=== PATIENT | male | born 1960 | race Caucasian/White ===

== ENCOUNTER 2016-03-07 08:12 | Outpatient (CLI) | payer OTHER | END 2016-03-07 08:13 | disposition home or self-care (01) | DX: M17.11 Unilateral primary osteoarthritis, right knee (principal) ==

== ENCOUNTER 2016-08-08 11:32 | Outpatient (CLI) | payer OTHER ==
--- NOTE | 2016-08-08 13:57 | XRAY Report ---
TWO-VIEW CHEST: 08/08/2016 CLINICAL INDICATION: Cough. COMPARISON: 12/24/2006 FINDINGS: Frontal and lateral views of the chest demonstrate a normal cardiac silhouette. The lungs are clear. No effusion or pneumothorax is present. IMPRESSION: NORMAL CHEST. JOB #: [id number] EXT JOB #:[id number]
== END 2016-08-08 11:33 | disposition home or self-care (01) ==
LOC: DI 11:32
PROVIDERS: ATTEND Internal Medicine
DX: R05 Cough (principal)
CPT/HCPCS: 71020

== ENCOUNTER 2016-08-31 07:59 | Outpatient (CLI) | payer OTHER ==
[2016-08-31 08:26] LABS: HCT - HEMATOCRIT 42.1 % (42.0-52.0); HGB - HEMOGLOBIN 14.5 g/dL (14.0-18.0); MEAN CORPUSCULAR HEMOGLOBIN 32.7 pg (27.0-31.0); MEAN CORPUSCULAR HGB CONC 34.5 g/dL (32.0-36.0); MEAN PLATELET VOLUME 7.7 fL (7.4-11.4); RED BLOOD COUNT 4.43 10^6/uL (4.70-6.10); WHITE BLOOD COUNT 6.4 x10^3/uL (4.8-10.8)
[2016-08-31 08:44] LABS: BILIRUBIN,TOTAL 0.6 mg/dL (0.2-1.0); BUN - BLOOD UREA NITROGEN 17 mg/dL (6-20); CALCIUM 8.8 mg/dL (8.5-10.3); CARBON DIOXIDE - CO2 24 mmol/L (21-32); CHLORIDE 105 mmol/L (101-111); CHOL/HDL RATIO 4.4 (<5.0); CHOLESTEROL 166 mg/dL; CREATININE 0.9 mg/dL (0.6-1.2); GFR - MDRD 87 (>89); GLUCOSE 99 mg/dL (70-100); HDL CHOLESTEROL 38 mg/dL; LDL/HDL RATIO 2.7 (<3.6); POTASSIUM 3.9 mmol/L (3.5-5.0); SODIUM 136 mmol/L (135-145); TOTAL PROTEIN 7.6 g/dL (6.7-8.2); TRIGLYCERIDES 118 mg/dL; VLDL CHOLESTEROL 24 mg/dL
== END 2016-08-31 08:00 | disposition home or self-care (01) ==
LOC: LAB 07:59
PROVIDERS: ATTEND Internal Medicine
DX: E78.5 Hyperlipidemia, unspecified (principal); I10 Essential (primary) hypertension; M25.561 Pain in right knee; Z12.5 Encounter for screening for malignant neoplasm of prostate; Z79.899 Other long term (current) drug therapy
CPT/HCPCS: 36415; 80053; 80061; 82306; 84153; 84443

== ENCOUNTER 2016-11-06 09:25 | Outpatient (CLI) | payer OTHER | END 2016-11-06 09:26 | disposition home or self-care (01) | LOC: SC 09:25 | PROVIDERS: ATTEND Internal Medicine Pulmonary Disease | DX: G47.33 Obstructive sleep apnea (adult) (pediatric) (principal); I10 Essential (primary) hypertension | CPT/HCPCS: 99203; 99212 ==

== ENCOUNTER 2016-11-28 08:17 | Outpatient (CLI) | payer OTHER ==
[2016-11-28 09:07] LABS: HCT - HEMATOCRIT 45.8 % (42.0-52.0); HGB - HEMOGLOBIN 15.7 g/dL (14.0-18.0); MEAN CORPUSCULAR HEMOGLOBIN 32.6 pg (27.0-31.0); MEAN CORPUSCULAR HGB CONC 34.2 g/dL (32.0-36.0); MEAN CORPUSCULAR VOLUME 95.3 fL (80.0-94.0); MEAN PLATELET VOLUME 8.1 fL (7.4-11.4); RED BLOOD COUNT 4.81 10^6/uL (4.70-6.10); WHITE BLOOD COUNT 7.9 x10^3/uL (4.8-10.8)
[2016-11-28 09:18] LABS: CALCIUM 9.2 mg/dL (8.5-10.3); CREATININE 0.9 mg/dL (0.6-1.2); POTASSIUM 4.1 mmol/L (3.5-5.0)
--- NOTE | 2016-11-28 10:52 | XRAY Report ---
TWO-VIEW CHEST: 11/28/2016 CLINICAL INDICATION: Cough. COMPARISON: 08/08/2016 FINDINGS: Frontal and lateral views of the chest demonstrate a normal cardiac silhouette. The lungs remain clear. No effusion or pneumothorax is present. IMPRESSION: NORMAL CHEST. JOB #: [id number] EXT JOB #:[id number]
== END 2016-11-28 08:18 | disposition home or self-care (01) ==
LOC: DI 08:17
PROVIDERS: ATTEND Internal Medicine
DX: R05 Cough (principal); I10 Essential (primary) hypertension; Z79.899 Other long term (current) drug therapy
CPT/HCPCS: 36415; 71020; 80048

== ENCOUNTER 2016-12-25 08:57 | Outpatient (CLI) | payer OTHER | END 2016-12-25 08:58 | disposition home or self-care (01) | LOC: SC 08:57 | PROVIDERS: ATTEND Internal Medicine Pulmonary Disease | DX: G47.33 Obstructive sleep apnea (adult) (pediatric) (principal) | CPT/HCPCS: 99212; 99213 ==

== ENCOUNTER 2017-03-20 08:49 | Outpatient (CLI) | payer OTHER ==
[2017-03-20 09:35] LABS: ALBUMIN 3.6 g/dL (3.2-5.5); ALBUMIN/GLOBULIN RATIO 0.9 (1.0-2.2); ALKALINE PHOSPHATASE 54 IU/L (42-121); ALT ALANINE AMINOTRANSFERASE 23 IU/L (10-60); AST ASPARTATE AMINOTRANSFERASE 23 IU/L (10-42); BILIRUBIN,TOTAL 0.7 mg/dL (0.2-1.0); BUN - BLOOD UREA NITROGEN 18 mg/dL (6-20); CALCIUM 8.8 mg/dL (8.5-10.3); CARBON DIOXIDE - CO2 23 mmol/L (21-32); CHLORIDE 104 mmol/L (101-111); CHOL/HDL RATIO 4.4 (<5.0); CHOLESTEROL 167 mg/dL; CREATININE 0.8 mg/dL (0.6-1.2); GFR - MDRD 99 (>89); GLUCOSE 89 mg/dL (70-100); HDL CHOLESTEROL 38 mg/dL; LDL CHOLESTEROL,CALCULATED 100 mg/dL; LDL/HDL RATIO 2.6 (<3.6); SODIUM 137 mmol/L (135-145); TOTAL PROTEIN 7.5 g/dL (6.7-8.2); VLDL CHOLESTEROL 29 mg/dL
== END 2017-03-20 08:50 | disposition home or self-care (01) ==
LOC: LAB 08:49
PROVIDERS: ATTEND Internal Medicine
DX: E78.00 Pure hypercholesterolemia, unspecified (principal); I10 Essential (primary) hypertension; Z79.899 Other long term (current) drug therapy
CPT/HCPCS: 36415; 80053; 80061; 83721

== ENCOUNTER 2017-06-12 08:22 | Outpatient (CLI) | payer OTHER ==
[2017-06-12 09:02] LABS: CALCIUM 8.9 mg/dL (8.5-10.3); CREATININE 0.9 mg/dL (0.6-1.2); MAGNESIUM 1.9 mg/dL (1.7-2.8)
== END 2017-06-12 08:23 | disposition home or self-care (01) ==
LOC: LAB 08:22
PROVIDERS: ATTEND Internal Medicine
DX: E78.5 Hyperlipidemia, unspecified (principal); I10 Essential (primary) hypertension
CPT/HCPCS: 36415; 80048; 83735

== ENCOUNTER 2017-06-12 08:57 | Outpatient (CLI) | payer OTHER ==
--- NOTE | 2017-06-12 12:34 | XRAY Report ---
TWO VIEW CHEST: 06/12/2017 CLINICAL INDICATION: Cough, nicotine dependence. FINDINGS: Frontal and lateral views of the chest are compared to previous films of 11/28/2016. The cardiac silhouette is within normal limits. The lungs remain clear. No effusion or pneumothorax is present. IMPRESSION: NORMAL CHEST, UNCHANGED. TD: 06/12/2017 12:33
== END 2017-06-12 08:58 | disposition home or self-care (01) ==
LOC: DI 08:57
PROVIDERS: ATTEND Internal Medicine
DX: R05 Cough (principal); F17.210 Nicotine dependence, cigarettes, uncomplicated; E78.5 Hyperlipidemia, unspecified; I10 Essential (primary) hypertension
CPT/HCPCS: 36415; 71046; 80048; 83735

== ENCOUNTER 2017-10-23 13:00 | Outpatient (CLI) | payer OTHER | END 2017-10-23 13:01 | disposition home or self-care (01) | LOC: RT 13:00 | PROVIDERS: ATTEND Internal Medicine | DX: R05 Cough (principal) | CPT/HCPCS: 94010 ==

== ENCOUNTER 2018-03-18 09:04 | Outpatient (CLI) | payer BC ==
[2018-03-18 09:25] LABS: BASOPHILS % (AUTO) 0.6 %; EOSINOPHILS # (AUTO) 0.2 10^3/uL (0.0-0.7); EOSINOPHILS % (AUTO) 2.1 %; HGB - HEMOGLOBIN 14.3 g/dL (14.0-18.0); LYMPHOCYTES # (AUTO) 2.2 10^3/uL (1.5-3.5); LYMPHOCYTES % (AUTO) 27.6 %; MEAN CORPUSCULAR HEMOGLOBIN 32.7 pg (27.0-31.0); MEAN CORPUSCULAR HGB CONC 34.1 g/dL (32.0-36.0); MEAN PLATELET VOLUME 7.3 fL (7.4-11.4); MONOCYTES # (AUTO) 0.7 10^3/uL (0.0-1.0); MONOCYTES % (AUTO) 9.1 %; NEUTROPHILS # (AUTO) 4.8 10^3/uL (1.5-6.6); NEUTROPHILS % (AUTO) 60.6 %; PLT - PLATELET COUNT 257 10^3/uL (130-450); RED BLOOD COUNT 4.36 10^6/uL (4.70-6.10); RED CELL DISTRIBUTION WIDTH 13.1 % (12.0-15.0)
[2018-03-18 09:43] LABS: ALBUMIN 3.6 g/dL (3.2-5.5); ALBUMIN/GLOBULIN RATIO 0.9 (1.0-2.2); ALKALINE PHOSPHATASE 49 IU/L (42-121); ALT ALANINE AMINOTRANSFERASE 23 IU/L (10-60); AST ASPARTATE AMINOTRANSFERASE 22 IU/L (10-42); BILIRUBIN,TOTAL 0.7 mg/dL (0.2-1.0); BUN - BLOOD UREA NITROGEN 24 mg/dL (6-20); CARBON DIOXIDE - CO2 27 mmol/L (21-32); CHLORIDE 101 mmol/L (101-111); CHOL/HDL RATIO 3.4 (<5.0); CHOLESTEROL 136 mg/dL; GFR - MDRD 76 (>89); GLUCOSE 100 mg/dL (70-100); HDL CHOLESTEROL 40 mg/dL; LDL CHOLESTEROL,CALCULATED 73 mg/dL; LDL/HDL RATIO 1.8 (<3.6); SODIUM 135 mmol/L (135-145); TOTAL PROTEIN 7.4 g/dL (6.7-8.2); VLDL CHOLESTEROL 23 mg/dL
== END 2018-03-18 09:05 | disposition home or self-care (01) ==
LOC: LAB 09:04
PROVIDERS: ATTEND Internal Medicine
DX: I10 Essential (primary) hypertension (principal); E78.5 Hyperlipidemia, unspecified; D64.9 Anemia, unspecified; E78.00 Pure hypercholesterolemia, unspecified
CPT/HCPCS: 36415; 80053; 80061; 83721; 85025; 85651

== ENCOUNTER 2018-06-18 09:39 | Outpatient (CLI) | payer BC ==
[2018-06-18 10:04] LABS: ABSOLUTE RETICS # AUTO 0.027 10^6/uL (0.020-0.110); BASOPHILS % (AUTO) 0.4 %; EOSINOPHILS # (AUTO) 0.1 10^3/uL (0.0-0.7); EOSINOPHILS % (AUTO) 0.9 %; HGB - HEMOGLOBIN 14.8 g/dL (14.0-18.0); LYMPHOCYTES # (AUTO) 2.3 10^3/uL (1.5-3.5); LYMPHOCYTES % (AUTO) 28.8 %; MEAN CORPUSCULAR HEMOGLOBIN 32.2 pg (27.0-31.0); MEAN CORPUSCULAR HGB CONC 33.6 g/dL (32.0-36.0); MEAN CORPUSCULAR VOLUME 95.9 fL (80.0-94.0); MEAN PLATELET VOLUME 7.8 fL (7.4-11.4); MEAN RETIC VALUE 118.1; MONOCYTES # (AUTO) 0.7 10^3/uL (0.0-1.0); NEUTROPHILS # (AUTO) 4.9 10^3/uL (1.5-6.6); NEUTROPHILS % (AUTO) 60.9 %; PLT - PLATELET COUNT 250 10^3/uL (130-450); RED BLOOD COUNT 4.59 10^6/uL (4.70-6.10); RED CELL DISTRIBUTION WIDTH 12.5 % (12.0-15.0); WHITE BLOOD COUNT 8.1 x10^3/uL (4.8-10.8)
[2018-06-18 10:31] LABS: FERRITIN 199.4 ng/mL (23.9-336.2)
[2018-06-18 11:08] LABS: CALCIUM 9.3 mg/dL (8.5-10.3); CREATININE 1.1 mg/dL (0.6-1.2)
[2018-06-18 11:17] LABS: FOLATE > 49.60 ng/mL (5.90 - >24.8)
== END 2018-06-18 09:40 | disposition home or self-care (01) ==
LOC: LAB 09:39
PROVIDERS: ATTEND Internal Medicine
DX: I10 Essential (primary) hypertension (principal); D64.9 Anemia, unspecified; Z79.899 Other long term (current) drug therapy; E78.49 Other hyperlipidemia
CPT/HCPCS: 36415; 80048; 82607; 82728; 82746; 83540; 84466; 85025; 85044

== ENCOUNTER 2018-09-10 09:16 | Outpatient (CLI) | payer BC ==
[2018-09-10 09:39] LABS: CALCIUM 9.2 mg/dL (8.5-10.3)
[2018-09-11 09:04] LABS: CHOLESTEROL 124 mg/dL; HDL CHOLESTEROL 42 mg/dL; LDL CHOLESTEROL,CALCULATED 65 mg/dL; LDL/HDL RATIO 1.5 (<3.6); VLDL CHOLESTEROL 17 mg/dL
== END 2018-09-10 09:17 | disposition home or self-care (01) ==
LOC: LAB 09:16
PROVIDERS: ATTEND Internal Medicine
DX: E78.5 Hyperlipidemia, unspecified (principal); I10 Essential (primary) hypertension; D64.9 Anemia, unspecified; Z79.899 Other long term (current) drug therapy
CPT/HCPCS: 36415; 80048; 80061; 82607; 83721; 84153

== ENCOUNTER 2018-10-23 08:44 | Outpatient (CLI) | payer BC ==
--- NOTE | 2018-10-23 15:22 | XRAY Report ---
Reason: OTHER EMPHYSEMA Procedure Date: 10/23/2018 Accession Number: [id number] / [id number] Procedure: XR - Chest 2 View X-Ray CPT Code: 82965 FULL RESULT: EXAM: CHEST RADIOGRAPHY EXAM DATE: 10/23/2018 09:00 AM. CLINICAL HISTORY: OTHER EMPHYSEMA. COMPARISON: CHEST 2 VIEW 06/12/2017 9:23 AM. TECHNIQUE: 2 views. FINDINGS: Lungs/Pleura: No focal opacities evident. No pleural effusion. No pneumothorax. Normal volumes. Mediastinum: Heart and mediastinal contours are unremarkable. Other: None. IMPRESSION: Normal 2-view chest radiography. Stable exam RADIA
== END 2018-10-23 08:45 | disposition home or self-care (01) ==
LOC: DI 08:44
PROVIDERS: ATTEND Internal Medicine Pulmonary Disease
DX: J43.8 Other emphysema (principal)
CPT/HCPCS: 71046

== ENCOUNTER 2020-03-01 10:17 | Outpatient (CLI) | payer BC, OTHER ==
[2020-03-01 10:40] LABS: BASOPHILS % (AUTO) 0.5 %; EOSINOPHILS # (AUTO) 0.1 10^3/uL (0.0-0.7); EOSINOPHILS % (AUTO) 1.9 %; HGB - HEMOGLOBIN 13.7 g/dL (14.0-18.0); LYMPHOCYTES # (AUTO) 2.4 10^3/uL (1.5-3.5); MEAN CORPUSCULAR HEMOGLOBIN 32.1 pg (27.0-31.0); MEAN CORPUSCULAR HGB CONC 33.7 g/dL (32.0-36.0); MEAN CORPUSCULAR VOLUME 95.1 fL (80.0-94.0); MEAN PLATELET VOLUME 9.6 fL (7.4-11.4); MONOCYTES # (AUTO) 0.7 10^3/uL (0.0-1.0); MONOCYTES % (AUTO) 10.3 %; NEUTROPHILS # (AUTO) 3.2 10^3/uL (1.5-6.6); NEUTROPHILS % (AUTO) 50.1 %; PLT - PLATELET COUNT 235 10^3/uL (130-450); RED BLOOD COUNT 4.27 10^6/uL (4.70-6.10); RED CELL DISTRIBUTION WIDTH 12.5 % (12.0-15.0); WHITE BLOOD COUNT 6.4 x10^3/uL (4.8-10.8)
[2020-03-01 10:56] LABS: ALBUMIN 3.7 g/dL (3.2-5.5); ALBUMIN/GLOBULIN RATIO 0.9 (1.0-2.2); ALKALINE PHOSPHATASE 51 IU/L (42-121); ALT ALANINE AMINOTRANSFERASE 31 IU/L (10-60); AST ASPARTATE AMINOTRANSFERASE 26 IU/L (10-42); BILIRUBIN,TOTAL 0.6 mg/dL (0.2-1.0); BUN - BLOOD UREA NITROGEN 22 mg/dL (6-20); CALCIUM 9.1 mg/dL (8.5-10.3); CARBON DIOXIDE - CO2 24 mmol/L (21-32); CHLORIDE 97 mmol/L (101-111); CHOL/HDL RATIO 3.4 (<5.0); CHOLESTEROL 146 mg/dL; CREATININE 1.1 mg/dL (0.6-1.2); GLUCOSE 109 mg/dL (70-100); HDL CHOLESTEROL 43 mg/dL; LDL CHOLESTEROL,CALCULATED 83 mg/dL; LDL/HDL RATIO 1.9 (<3.6); SODIUM 134 mmol/L (135-145); TOTAL PROTEIN 7.8 g/dL (6.7-8.2); VLDL CHOLESTEROL 20 mg/dL
== END 2020-03-01 10:18 | disposition home or self-care (01) ==
LOC: LAB 10:17
PROVIDERS: ATTEND Internal Medicine
DX: I10 Essential (primary) hypertension (principal); E78.5 Hyperlipidemia, unspecified; D64.9 Anemia, unspecified; R53.83 Other fatigue; Z79.899 Other long term (current) drug therapy
CPT/HCPCS: 36415; 80053; 80061; 83721; 84443; 85025; 85651

== ENCOUNTER 2020-03-10 09:26 | Outpatient (CLI) | payer BC ==
--- OUTSIDE RECORDS SUMMARY | 2020-03-10 09:28 | EXTERNAL MEDICAL SUMMARY RPT | Continuity of Care Document ---
:1960 Demographics Phone Unavailable Preferred Language Unknown Marital Status Unknown Judaism Affiliation Unknown Race Unknown Ethnic Group Unknown Author Organization [place] Address [address] [phone] Phone Care Team Providers Name Role Phone Bonilla Unavailable Unavailable Problems date description facility 2013-11-25 08:11 JOINT PAIN-UNSPEC [facility] 2013-11-25 08:11 JOINT PAIN-ANKLE [facility] 2013-11-25 08:11 OTH MALAISE FATIGUE [facility] 2013-11-25 08:11 SCREENING FOR GOUT [facility] 2013-12-18 09:36 ABDOMINAL PAIN, UNSPECIFIED SITE [facility] 2013-12-18 09:[address] [facility] 2013-12-23 09:16 ABDOMINAL PAIN, UNSPECIFIED SITE [facility] 2013-12-24 07:00 ABDOMINAL PAIN, UNSPECIFIED SITE [facility] 2013-12-24 07:[address] [facility] 2015-10-29 08:06 OBSTRUCTIVE SLEEP APNEA (ADULT) [facility] (PEDIATRIC) 2015-10-29 08:06 ENCNTR FOR GENERAL ADULT MEDICAL [facility] EXAM W/O ABNORMAL FINDINGS 2015-10-29 08:06 ENCOUNTER FOR SCREENING FOR LIPOID [facility] DISORDERS 2015-10-29 08:06 OTHER [facility] (CURRENT) DRUG [facility] THERAPY 2016-03-07 08:12 UNILATERAL PRIMARY OSTEOARTHRITIS, [facility] RIGHT KNEE 2016-08-08 11:32 COUGH [facility] 2016-08-31 07:59 HYPERLIPIDEMIA, UNSPECIFIED [facility] 2016-08-31 07:59 ESSENTIAL (PRIMARY) HYPERTENSION [facility] 2016-08-31 07:59 PAIN IN RIGHT KNEE [facility] 2016-08-31 07:59 ENCOUNTER FOR SCREENING FOR [facility] MALIGNANT NEOPLASM OF PROSTATE 2016-08-31 07:59 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 UNSPECIFIED 2017-03-20 08:49 ESSENTIAL (PRIMARY) HYPERTENSION [facility] 2017-03-20 08:49 OTHER M[facility] (CURRENT) DRUG [facility] THERAPY 2017-06-12 08:22 HYPERLIPIDEMIA, UNSPECIFIED [facility] 2017-06-12 08:22 ESSENTIAL (PRIMARY) HYPERTENSION [facility] 2017-06-12 08:57 HYPERLIPIDEMIA, UNSPECIFIED [facility] 2017-06-12 08:57 NICOTINE DEPENDENCE, CIGARETTES, [facility] UNCOMPLICATED 2017-06-12 08:57 ESSENTIAL (PRIMARY) HYPERTENSION [facility] 2017-06-12 08:57 COUGH [facility] 2018-03-18 09:04 ANEMIA, UNSPECIFIED [facility] 2018-03-18 09:04 PURE HYPERCHOLESTEROLEMIA, [facility] UNSPECIFIED 2018-03-18 09:04 HYPERLIPIDEMIA, UNSPECIFIED [facility] 2018-03-18 09:04 ESSENTIAL (PRIMARY) HYPERTENSION [facility] 2018-04-01 08:00 PAIN IN UNSPECIFIED KNEE [facility] 2018-06-18 09:39 ANEMIA, UNSPECIFIED [facility] 2018-06-18 09:39 OTHER HYPERLIPIDEMIA [facility] 2018-06-18 09:39 ESSENTIAL (PRIMARY) HYPERTENSION [facility] 2018-06-18 09:39 OTHER [facility] (CURRENT) DRUG [facility] THERAPY 2018-09-10 09:16 ANEMIA, UNSPECIFIED [facility] 2018-09-10 09:16 HYPER[facility]IP[facility]EMIA, [facility] 2018-09-10 09:16 ESSENTIAL (PRIMARY) HYPERTENSION [facility] 2018-09-10 09:16 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 [facility]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 2018-10-23 08:44 OTHER EMPHYSEMA [facility] 2018-11-22 10:00 NUTRITIONAL ANEMIA, UNSPECIFIED [facility] 2018-11-22 10:00 HYPERLIPIDEMIA, UNSPECIFIED [facility] 2018-11-22 10:00 NICOTINE DEPENDENCE, CIGARETTES, [facility] UNCOMPLICATED 2018-11-22 10:00 SLEEP APNEA, UNSPECIFIED [facility] 2018-11-22 10:00 ESSENTIAL (PRIMARY) HYPERTENSION [facility] 2018-11-22 10:00 CHRONIC OBSTRUCTIVE PULMONARY [facility] DISEASE, UNSPECIFIED 2018-11-22 10:00 OTHER SPECIFIED ABNORMAL FINDINGS [facility] OF BLOOD CHEMISTRY 2018-11-22 10:00 MCC (CURRENT) USE OF ASPIRIN [facility] 2018-11-22 10:00 OTHER M[facility] (CURRENT) DRUG [facility] THERAPY 2018-11-22 10:00 FAMILY HISTORY OF MALIGNANT [facility] NEOPLASM, UNSPECIFIED 2019-03-03 08:58 CHRONIC OBSTRUCTIVE PULMONARY [facility] DISEASE, UNSPECIFIED 2019-04-28 16:40 NUTRITIONAL ANEMIA, UNSPECIFIED [facility] 2019-04-28 16:40 HYPERLIPIDEMIA, UNSPECIFIED [facility] 2019-04-28 16:40 NICOTINE DEPENDENCE, CIGARETTES, [facility] UNCOMPLICATED 2019-04-28 16:40 OBSTRUCTIVE SLEEP APNEA (ADULT) [facility] (PEDIATRIC) 2019-04-28 16:40 ESSENTIAL (PRIMARY) HYPERTENSION [facility] 2019-04-28 16:40 CHRONIC OBSTRUCTIVE PULMONARY [facility] DISEASE, UNSPECIFIED 2019-04-28 16:40 ABNORMAL WEIGHT GAIN [facility] 2019-04-28 16:40 OTHER SPECIFIED ABNORMAL FINDINGS [facility] OF BLOOD CHEMISTRY 2019-04-28 16:40 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 [facility]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 2019-04-28 16:40 FAMILY HISTORY OF MALIGNANT [facility] NEOPLASM, UNSPECIFIED 2019-10-20 16:20 NUTRITIONAL ANEMIA, UNSPECIFIED [facility] 2019-10-20 16:20 HYPERLIPIDEMIA, UNSPECIFIED [facility] 2019-10-20 16:20 NICOTINE DEPENDENCE, CIGARETTES, [facility] UNCOMPLICATED 2019-10-20 16:20 OBSTRUCTIVE SLEEP APNEA (ADULT) [facility] (PEDIATRIC) 2019-10-20 16:20 ESSENTIAL (PRIMARY) HYPERTENSION [facility] 2019-10-20 16:20 CHRONIC OBSTRUCTIVE PULMONARY [facility] DISEASE, UNSPECIFIED 2019-10-20 16:20 ABNORMAL WEIGHT GAIN [facility] 2019-10-20 16:20 OTHER SPECIFIED ABNORMAL FINDINGS [facility] OF BLOOD CHEMISTRY 2019-10-20 16:20 OTHER MCC (CURRENT) DRUG [facility] THERAPY 2019-10-20 16:20 FAMILY HISTORY OF MALIGNANT [facility] NEOPLASM, UNSPECIFIED 2020-01-14 08:32 NUTRITIONAL ANEMIA, UNSPECIFIED [facility] 2020-01-14 08:32 HYPERLIPIDEMIA, UNSPECIFIED [facility] 2020-01-14 08:32 NICOTINE DEPENDENCE, CIGARETTES, [facility] UNCOMPLICATED 2020-01-14 08:32 OBSTRUCTIVE SLEEP APNEA (ADULT) [facility] (PEDIATRIC) 2020-01-14 08:32 ESSENTIAL (PRIMARY) HYPERTENSION [facility] 2020-01-14 08:32 CHRONIC OBSTRUCTIVE PULMONARY [facility] DISEASE, UNSPECIFIED 2020-01-14 08:32 ABNORMAL WEIGHT GAIN [facility] 2020-01-14 08:32 OTHER SPECIFIED ABNORMAL FINDINGS [facility] OF BLOOD CHEMISTRY 2020-01-14 08:32 OTHER MCC (CURRENT) DRUG [facility] THERAPY 2020-01-14 08:32 FAMILY HISTORY OF MALIGNANT [facility] NEOPLASM, UNSPECIFIED 2020-01-26 15:40 NUTRITIONAL ANEMIA, UNSPECIFIED [facility] 2020-01-26 15:40 HYPERLIPIDEMIA, [facility]NSPECIFIED [facility] 2020-01-26 15:40 NICOTINE DEPENDENCE, CIGARETTES, [facility] UNCOMPLICATED 2020-01-26 15:40 SLEEP APNEA, UNSPECIFIED [facility] 2020-01-26 15:40 OBSTRUCTIVE SLEEP APNEA (ADULT) [facility] (PEDIATRIC) 2020-01-26 15:40 ESSENTIAL (PRIMARY) HYPERTENSION [facility] 2020-01-26 15:40 CHRONIC OBSTRUCTIVE PULMONARY [facility] DISEASE, UNSPECIFIED 2020-01-26 15:40 OTHER FATIGUE [facility] 2020-01-26 15:40 ABNORMAL WEIGHT GAIN [facility] 2020-01-26 15:40 OTHER SPECIFIED ABNORMAL FINDINGS [facility] OF BLOOD CHEMISTRY 2020-01-26 15:40 OTHER MCC (CURRENT) DRUG [facility] THERAPY 2020-01-26 15:40 FAMILY HISTORY OF MALIGNANT [facility] NEOPLASM, UNSPECIFIED 2020-03-10 09:30 COUGH [facility] 2020-07-28 16:20 NUTRITIONAL ANEMIA, UNSPECIFIED [facility] 2020-07-28 16:20 HYPERLIPIDEMIA, UNSPECIFIED [facility] 2020-07-28 16:20 NICOTINE DEPENDENCE, CIGARETTES, [facility] UNCOMPLICATED 2020-07-28 16:20 SLEEP APNEA, UNSPECIFIED [facility] 2020-07-28 16:20 OBSTRUCTIVE SLEEP APNEA (ADULT) [facility] (PEDIATRIC) 2020-07-28 16:20 ESSENTIAL (PRIMARY) HYPERTENSION [facility] 2020-07-28 16:20 OTHER FATIGUE [facility] 2020-07-28 16:20 ABNORMAL WEIGHT GAIN [facility] 2020-07-28 16:20 OTHER [facility] (CURRENT) DRUG [facility] THERAPY 2020-07-28 16:20 FAMILY HISTORY OF MALIGNANT [facility] [place] NEOPLASM, UNSPECIFIED Allergies date description facility NO KNOWN ALLERGIES [facility] [place] aspirin [facility] [place] CODEINE [facility] [place] HYDROCODONE [facility] [place] NO KNOWN ENVIRONMENTAL ALLERGIES [facility] SULFACETAMIDE SODIUM [facility] Center NO KNOWN ALLERGIES [facility] [place] PENICILLINS [facility] aspirin [facility] Results Social History date description facility [id number]
--- NOTE | 2020-03-10 09:53 | XRAY Report ---
PROCEDURE: Chest 2 View X-Ray INDICATIONS: COUGH TECHNIQUE: 2 view(s) of the chest. COMPARISON: 10/23/2018. FINDINGS: Surgical changes and devices: None. Lungs and pleura: No pleural effusions or pneumothorax. Lungs are clear. Mediastinum: Mediastinal contours are normal. Heart size is normal. Bones and chest wall: No suspicious bony abnormalities. Soft tissues appear unremarkable. IMPRESSION: 1. No acute cardiopulmonary disease. Reviewed by: Sunil Diaz MD on 03/10/2020 9:52 AM [facility] Approved by: Sunil Diaz MD on 03/10/2020 9:52 AM [facility] Station ID: [id number]
== END 2020-03-10 09:27 | disposition home or self-care (01) ==
LOC: DI 09:26
PROVIDERS: ATTEND Internal Medicine
DX: R05 Cough (principal)

== ENCOUNTER 2020-04-19 09:36 | Outpatient (CLI) | payer BC, OTHER ==
--- NOTE | 2020-04-19 12:30 | SLEEP CARE CONSULTATION ---
Information from patient questionnaire entered by Diana Marion. I have reviewed and concur with the information entered by Diana Marion. This document represents the service I personally performed and the decisions made by me, Dede Jc MD, [facility]. History of Present Illness Service Date and Time: 04/19/2020 0936 Reason for Visit: New patient, Previously diagnosed sleep apnea (moderate - AHI 20.1 ), sleep apnea on CPAP therapy ([employer]), Re-establish care Chief Complaint: reports: Other (supply for machine) Usual bedtime: 7:30 pm Time it takes to fall asleep: 10-15 minutes Snores at night: No (not sure) Observed to quit breathing while asleep: Yes Sleeps alone due to snoring: No Number of times waking at night: 3 Reasons for waking at night: reports: Bathroom Toss, Turn, or Twitch while sleeping: No Recalls having dreams: Yes Usually gets out of bed at: 5:45 am Feels refreshed in the morning: No Morning headache: No Sleepy or fatigued during the day: Yes (sometimes) Ever fallen asleep while driving: No Takes day naps: No Dreams during day naps: No Prior sleep studies: Yes Year and Where: 2009 - [facility] Type of Sleep Study: Polysomnography Additional HPI information: Mr. Bucio is a 56 year old gentleman who was diagnosed with moderate obstructive sleep apnea-hypopnea here 7 years ago. The AHI was 20.1. He was started on CPAP therapy. He has been using the device consistently. He is currently on his second machine which he acquired in 2017. Compliance report shows usage in 180 out of the past 180 nights, average usage of 10.2 hours a night. The residual AHI is 0.3. Air leaks average 2.6 L/minute. The pressure is set at 6 - 12 cmH2O. He wears a Respironics DreamWear nasal pillows. 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 - Parasomnia Symptoms Ever been unable to move upon waking from sleep: No Ever felt weak in the knees when startled or emotional: No Bothered by creepy, crawly, restless sensations in legs: No Problems with memory or concentration: Yes CPAP Compliance Data - Data Reviewed with Patient Average duration of nightly device use: 10 hr 11 min Compliance rate %: 100 (180 days) Current pressure setting (cmH2O): 6-12 Humidity settin Average residual AHI: 0.3 Subjective Initial Soldier Sleepiness Scale score: 14 (in 2009) Current Soldier Sleepiness Scale score: 4 Past Medical History Past Medical History: reports: Hypertension Social History 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 Patient is and lives in [place]. Have you smoked in the past 12 months: No Cigarettes per day (20/pack): 10 Years of smokin Quit date: 06/2019 Smoking Pack Years: 15.0 Alcohol use: No Caffeine use: Yes Caffeine amount and frequency: 2 cups a day Family History Family history of sleep disordered breathing: Yes (son) Allergies and Home Medications Drug allergies reviewed: Yes Home medication list reviewed: Yes Review of Systems Weight gain over past 5 years: 20 Cardiovascular: reports: high blood pressure Respiratory: reports: shortness of breath Gastrointestinal: denies: heartburn, difficulty swallowing, nausea, vomitting, diarrhea, abdominal pain, other Urinary: reports: frequency Neurological: denies: headaches, seizure, head trauma, disorientation, speech dysfunction, gait or balance problems, fainting or unconsciousness, other Psychiatric: denies: Attention Deficit Hyperactivity, anxiety, depression, mood disorder, claustrophobia, other Ear/Nose/Throat: denies: nasal congestion, sinus problems, nose bleeds, dry mouth/throat, hoarseness, injury to nose, tonsillectomy, wisdom teeth removed, other Endocrine: denies: thyroid disease, history of goiter, sluggishness, too hot or cold, excessive thirst, increased appetite, increased urination, unexplained weakness, other Musculoskeletal: denies: joint pain, neck pain, back pain, joint swelling, muscle pain or cramping, mobility problems, other Immunologic: denies: sneezing, rash, itching, allergies to food or environment, other Physical Exam Height: 5 ft 8 in Weight: 200 lb Weight change since last visit: +30 Body Mass Index: 30.4 BMI Classification: Obese Impression and Plan IMPRESSION: 1. Obstructive Sleep Apnea-Hypopnea Syndrome, moderate, as previously diagnosed. The patient has had very good treatment compliance for the past 11 years. The current pressure setting appears effective and comfortable. The patient needs a new prescription for [employer] to send him supplies. Plan: 1. Prescription made for CPAP supplies. 2. Attempt to lose weight. 3. Return for follow up in a year or earlier if there is any problem. Counseling Topics: Weight control Visit Type: In Office Time Spent with Patient (minutes): 15 Provider Statement: I spent 100% of the Face to Face Visit with the patient with greater than 50% spent counseling the patient and coordination of care.
== END 2020-04-19 09:37 | disposition home or self-care (01) ==
LOC: SC 09:36
PROVIDERS: ATTEND Internal Medicine Pulmonary Disease
DX: G47.33 Obstructive sleep apnea (adult) (pediatric) (principal); E66.9 Obesity, unspecified; Z68.30 Body mass index [BMI] 30.0-30.9, adult
CPT/HCPCS: 99202; 99212

== ENCOUNTER 2020-08-02 10:51 | Outpatient (CLI) | payer BC ==
[2020-08-02 11:29] LABS: BASOPHILS % (AUTO) 0.3 %; EOSINOPHILS # (AUTO) 0.1 10^3/uL (0.0-0.7); EOSINOPHILS % (AUTO) 0.8 %; HCT - HEMATOCRIT 42.4 % (42.0-52.0); HGB - HEMOGLOBIN 14.9 g/dL (14.0-18.0); LYMPHOCYTES # (AUTO) 2.1 10^3/uL (1.5-3.5); LYMPHOCYTES % (AUTO) 33.1 %; MEAN CORPUSCULAR HEMOGLOBIN 32.3 pg (27.0-31.0); MEAN CORPUSCULAR HGB CONC 35.1 g/dL (32.0-36.0); MEAN CORPUSCULAR VOLUME 91.8 fL (80.0-94.0); MEAN PLATELET VOLUME 9.1 fL (7.4-11.4); MONOCYTES # (AUTO) 0.7 10^3/uL (0.0-1.0); MONOCYTES % (AUTO) 10.8 %; NEUTROPHILS # (AUTO) 3.5 10^3/uL (1.5-6.6); NEUTROPHILS % (AUTO) 54.8 %; PLT - PLATELET COUNT 260 10^3/uL (130-450); RED BLOOD COUNT 4.62 10^6/uL (4.70-6.10); RED CELL DISTRIBUTION WIDTH 12.4 % (12.0-15.0); WHITE BLOOD COUNT 6.5 x10^3/uL (4.8-10.8)
[2020-08-02 11:47] LABS: ALBUMIN 4.1 g/dL (3.2-5.5); ALBUMIN/GLOBULIN RATIO 1.1 (1.0-2.2); ALKALINE PHOSPHATASE 49 IU/L (42-121); ALT ALANINE AMINOTRANSFERASE 30 IU/L (10-60); AST ASPARTATE AMINOTRANSFERASE 25 IU/L (10-42); BUN - BLOOD UREA NITROGEN 21 mg/dL (6-20); CALCIUM 9.2 mg/dL (8.5-10.3); CARBON DIOXIDE - CO2 22 mmol/L (21-32); CHLORIDE 96 mmol/L (101-111); CHOL/HDL RATIO 3.7 (<5.0); CHOLESTEROL 150 mg/dL; GFR - MDRD 76 (>89); GLUCOSE 99 mg/dL (70-100); HDL CHOLESTEROL 41 mg/dL; LDL CHOLESTEROL,CALCULATED 67 mg/dL; LDL/HDL RATIO 1.6 (<3.6); POTASSIUM 4.1 mmol/L (3.5-5.0); SODIUM 129 mmol/L (135-145); TRIGLYCERIDES 211 mg/dL; VLDL CHOLESTEROL 42 mg/dL
== END 2020-08-02 10:52 | disposition home or self-care (01) ==
LOC: LAB 10:51
PROVIDERS: ATTEND Internal Medicine
DX: I10 Essential (primary) hypertension (principal); E78.5 Hyperlipidemia, unspecified; D64.9 Anemia, unspecified; Z79.899 Other long term (current) drug therapy; R53.81 Other malaise
CPT/HCPCS: 36415; 80053; 80061; 83721; 84153; 84443; 85025; 85651

== ENCOUNTER 2020-08-02 12:43 | Outpatient (CLI) | payer BC, OTHER ==
--- NOTE | 2020-08-02 13:11 | XRAY Report ---
PROCEDURE: Chest 2 View X-Ray INDICATIONS: COUGH TECHNIQUE: 2 view(s) of the chest. COMPARISON: None. FINDINGS: Surgical changes and devices: None. Lungs and pleura: No pleural effusions or pneumothorax. Lungs are clear. Mediastinum: Mediastinal contours are normal. Heart size is normal. Bones and chest wall: No suspicious bony abnormalities. Soft tissues appear unremarkable. IMPRESSION: No acute process. Reviewed by: Abiodun Kam MD on 08/02/2020 1:09 PM PDT Approved by: Abiodun Kam MD on 08/02/2020 1:09 PM PDT Station ID: [id number]
== END 2020-08-02 12:44 | disposition home or self-care (01) ==
LOC: DI 12:43
PROVIDERS: ATTEND Internal Medicine
DX: R05 Cough (principal); I10 Essential (primary) hypertension; E78.5 Hyperlipidemia, unspecified; D64.9 Anemia, unspecified; R53.81 Other malaise; Z79.899 Other long term (current) drug therapy
CPT/HCPCS: 36415; 80053; 80061; 83721; 84153; 84443; 85025; 85651

== ENCOUNTER 2021-05-18 08:53 | Outpatient (CLI) | payer BC, OTHER ==
--- NOTE | 2021-05-18 09:25 | XRAY Report ---
PROCEDURE: Chest 2 View X-Ray INDICATIONS: COPD TECHNIQUE: 2 view(s) of the chest. COMPARISON: August 02, 2020 FINDINGS: SUPPORT DEVICES: None. LUNGS/PLEURA: Mildly coarsened interstitial markings. No focal consolidation, pleural effusion or spa ce-occupying pneumothorax. MEDIASTINUM: The cardiomediastinal silhouette is within normal limits. BONES/SOFT TISSUES: No acute abnormality. IMPRESSION: 1.No acute cardiopulmonary abnormality. Reviewed by: Lawrence Gill MD on 05/18/2021 9:23 AM PDT Approved by: Lawrence Gill MD on 05/18/2021 9:23 AM PDT Station ID: [id number]
== END 2021-05-18 08:54 | disposition home or self-care (01) ==
LOC: DI 08:53
PROVIDERS: ATTEND Internal Medicine
DX: J44.9 Chronic obstructive pulmonary disease, unspecified (principal)

== ENCOUNTER 2021-06-11 08:45 | Outpatient (CLI) | payer BC, OTHER | END 2021-06-11 08:46 | disposition home or self-care (01) | LOC: RT 08:45 | PROVIDERS: ATTEND Internal Medicine | DX: J44.9 Chronic obstructive pulmonary disease, unspecified (principal) | CPT/HCPCS: 94010; 94727; 94729 ==

== ENCOUNTER 2021-09-26 09:11 | Outpatient (CLI) | payer BC, OTHER ==
[2021-09-26 10:51] VITALS: BP 142/95
--- NOTE | 2021-09-26 10:51 | SLEEP CARE CONSULTATION ---
Information from patient questionnaire entered by Brendon Morataya MA. I have reviewed and concur with the information entered by Brendno Morataya MA. This document represents the service I personally performed and the decisions made by me, Dede Jc MD, [facility]. History of Present Illness Service Date and Time: 09/26/2021 0911 Reason for follow up: annual (LAST SEEN 03/2020, RESMED, CRUZ 11/20/2016, NEW RX? ) Prior sleep studies: Yes Year and Where: 2009 - [facility] Type of Sleep Study: Polysomnography HPI additional information: Mr. Bucio is a 56-year-old gentleman who was diagnosed with moderate obstructive sleep apnea-hypopnea here 7 years ago. The AHI was 20.1. He was started on CPAP therapy. He has been using the device consistently. He is currently on his second machine which he acquired in October of 2016. Compliance report shows usage in 365 out of the past 365 nights, average usage of 10.2 hours a night. The residual AHI is 0.3. Air leaks average 1.7 L/minute. The pressure is set at 6 - 12 cmH2O. He wears a Respironics DreamWear nasal pillows. He gets his supplies from [facility]. His Yolyn Sleepiness Scale score is 4 today. Sleep Study - Results Type of Sleep Study: Polysomnography Prior sleep studies: Yes Year and Where: 2009 - [facility] CPAP Compliance Data - Data Reviewed with Patient Average duration of nightly device use: 10 HOURS 1 MINUTE Compliance rate %: 100 (05/26/21-09/22/21) Current pressure setting (cmH2O): 6-12 Average residual AHI: 0.4 Central apnea: .0 Obstructive apnea: .0 Hypopnea: .3 Average large leak: .4 Subjective Initial Yolyn Sleepiness Scale score: 14 (in 2009) Current Yolyn Sleepiness Scale score: 4 (09/26/2021) Allergies and Home Medications Known drug allergies: No Drug allergies reviewed: Yes Home medication list reviewed: Yes Allergy and home medication list: Allergies aspirin Allergy (Verified 08/06/20 16:23) Nausea Review of Systems Review of systems same as previous: Yes Physical Exam Vital signs obtained and entered by: MAYKEL GUZMAN Blood Pressure: 142/95 (RIGHT) Heart Rate: 73 O2 Saturation: 98 (PAPER MASK) Height: 5 ft 8 in Weight: 201 lb (CLOTHES) Body Mass Index: 30.5 BMI Classification: Obese Impression and Plan IMPRESSION: 1. Obstructive Sleep Apnea-Hypopnea Syndrome, moderate, as previously diagnosed. The patient has had very good treatment compliance for the past 11 years. The current pressure setting appears effective and comfortable. The patient needs a new prescription for [employer] to send him supplies. Plan: 1. Prescription made for CPAP supplies. 2. Attempt to lose weight. 3. Return for follow up in three months when he is eligible for a new CPAP. Follow up with [facility] in: 3 months Visit Type: In Office Time Spent with Patient (minutes): 20 Provider Statement: I spent 100% of the Face to Face Visit with the patient with greater than 50% spent counseling the patient and coordination of care.
== END 2021-09-26 09:12 | disposition home or self-care (01) ==
LOC: SC 09:11
PROVIDERS: ATTEND Internal Medicine Pulmonary Disease
DX: G47.33 Obstructive sleep apnea (adult) (pediatric) (principal); E66.9 Obesity, unspecified; Z68.30 Body mass index [BMI] 30.0-30.9, adult
CPT/HCPCS: 99212; 99213

== ENCOUNTER 2022-01-23 09:52 | Outpatient (CLI) | payer BC, OTHER ==
--- NOTE | 2022-01-23 10:12 | SLEEP CARE CONSULTATION ---
Information from patient questionnaire entered by Fannie Azar. I have reviewed and concur with the information entered by Fannie Azar. This document represents the service I personally performed and the decisions made by me, Dede Jc MD, [facility]. History of Present Illness Service Date and Time: 01/23/2022 0952 Reason for follow up: three month (F/U RESMED) Prior sleep studies: Yes Year and Where: 2009 - Merged with [facility] Type of Sleep Study: Polysomnography HPI additional information: Mr. Kerns was diagnosed to have moderate obstructive sleep apnea-hypopnea syndrome and returns today for follow up of CPAP therapy. The patient purchased the device from [email or web address] but is getting supplies from [employer]. He wears the Respironic[employer]mifyWear nasal pillows. He continues to use the device nightly and all through the night. The compliance report shows that he uses the device 180 nights out of the past 180 nights, averaging 10.3 hours a night. He complains of no particular problem with the device such as soreness on the face, dry nose, epistaxis, nasal congestion or headache. He thinks that the pressure of 6 - 12 cmH2O is comfortable. On the CPAP therapy he notices improvement in his sleep quality, and that he wakes up feeling fresher in the morning and more awake/alert during the day. His notices no snore at all. [place] Sleepiness Scale score is 3. The average residual AHI is 0.4; and average time in large leak per day is 0.5 minutes a night. The 90th percentile pressure is 11.9 cmH2O. Sleep Study - Results Type of Sleep Study: Polysomnography Prior sleep studies: Yes Year and Where: 2009 - Merged with [facility] CPAP Compliance Data - Data Reviewed with Patient Average duration of nightly device use: 10HRS, 16MIN Compliance rate %: 99 (10/20/2021-01/17/2022) Current pressure setting (cmH2O): 6-12 Average residual AHI: 0.4 Subjective Initial [place] Sleepiness Scale score: 14 (in 2009) Current [place] Sleepiness Scale score: 3 (01/23/2022) Allergies and Home Medications Allergy and home medication list: Allergies aspirin Allergy (Verified 08/06/20 16:23) Nausea Review of Systems Review of systems same as previous: Yes Physical Exam Vital signs obtained and entered by: FANNIE Zavala MA Blood Pressure: 126/72 (LEFT ARM) Cuff size: regular Heart Rate: 82 O2 Saturation: 98 Height: 5 ft 8 in Weight: 205 lb 12.8 oz Body Mass Index: 31.3 BMI Classification: Obese Impression and Plan IMPRESSION: 1. Obstructive Sleep Apnea-Hypopnea Syndrome, moderate, with the patient continuing to do well on nasal CPAP therapy. He has excellent compliance and significant clinical benefits. The current pressure appears effective and comfortable. Overall, he is very satisfied with treatment and plans to continue with it long-term. No adjustment is necessary today. Because the CPAP is now older than the useful life of 5 years, I will order the patient a new one and make it an autoCPAP set between 6 and 12 cmH2O. PLAN: 1. Continue with autoCPAP set at 6 -12 cm H2O. 2. Prescription made for a new autoCPAP, heated humidifier, and related supplies. 3. Return in one year for follow up or earlier if there is any problem with the treatment. Continue with device pressure at (cmH2O): 6 - 12 Prescriptions: Auto CPAP Follow up with Sleep Care in: 1-2 months Visit Type: In Office Time Spent with Patient (minutes): 15 Provider Statement: I spent 100% of the Face to Face Visit with the patient with greater than 50% spent counseling the patient and coordination of care.
[2022-01-23 11:01] VITALS: BP 126/72
== END 2022-01-23 09:53 | disposition home or self-care (01) ==
LOC: SC 09:52
PROVIDERS: ATTEND Internal Medicine Pulmonary Disease
DX: G47.33 Obstructive sleep apnea (adult) (pediatric) (principal)
CPT/HCPCS: 99212